=== PATIENT | female | born 1985 | race Caucasian/White ===

== ENCOUNTER 2017-02-21 13:36 | Emergency (ER) | payer OTHER ==
[~2017-02-21] VITALS: Ht 170.2 cm; Wt 68.0 kg
[2017-02-21] MEDS ORDERED: IBUPROFEN600 MG ORAL (14:28)
[2017-02-21 14:52] VITALS: BP 131/77
--- NOTE | 2017-02-21 15:17 | Diagnostic Imaging Report ---
Indication: PAIN Technique: 2 views of the left hip Comparison: Findings: No acute fractures. No dislocations. Joint spaces are preserved. Normal mineralization. Impression: No acute process
--- NOTE | 2017-02-21 21:28 | Emergency Room Report ---
History of Present Illness General Chief Complaint: Multiple Trauma/Fall Source: Patient Present Illness HPI The patient is a 31-year-old female presenting with left hip pain which began today after falling at work. The patient states that she slipped and fell onto the left hip. Pain is described as a 6/10 dull ache and does not radiate from the hip. Pain is worse with walking and touch. The patient denies prior injury to the hip. She denies numbness or tingling. She denies any other symptoms Allergies: Coded Allergies: No Known Allergies (Unverified , 02/21/17) Patient History Past Medical History: see triage record Pertinent Family History: none Last Menstrual Period: 02/03/17 Now: No Reviewed Nursing Documentation: PMH: Agreed, PSxH: Agreed Nursing Documentation-PMH Past Medical History: No Stated History Review of Systems All Other Systems: negative except mentioned in HPI Physical Exam Vital Signs Date Time Temp Pulse Resp B/P Pulse Ox O2 Delivery O2 Flow Rate FiO2 02/21/17 13:43 97.5 104 14 98/63 99 Room Air Sp02 EP Interpretation: reviewed, normal General Appearance: no apparent distress, alert, GCS 15, non-toxic Head: normocephalic, atraumatic Eyes: bilateral eye PERRL, bilateral eye normal inspection Musculoskeletal: digits/nails normal, normal range of motion, no calf tenderness, tender - Lateral L hip Neurologic: alert, oriented x3, responsive, motor strength/tone normal, sensory intact, speech normal, abnormal gait - antalgic Skin: normal color, no rash, warm/dry, well hydrated Lymphatic: no adenopathy Medical Decision Making PA Attestation Dr. Mazariegos is my supervising physician. Patient management was discussed with my supervising physician Diagnostic Impression: Primary Impression: Contusion of hip, left ER Course The patient is a 31-year-old female presenting with left hip pain Ddx considered include but not limited to sprain/strain, fracture, contusion PE: Vitals WNL. NAD. L hip: Skin intact. No erythema or edema. Sensation intact to light touch. Full AROM. No joint laxity. No obvious deformity.There is tenderness to palpation over the left lateral hip. No leg length discrepancy. Patient walks with antalgic gait X-ray series of the hip is unremarkable. Patient is given Tylenol for pain with good relief She'll be discharged home with a prescription for Motrin and will follow up with PMD. ER precautions are given Other X-Ray Diagnostic Results Other X-Ray Diagnostic Results : X-Ray Ordered: L Hip Date: Feb 21, 2017 Findings: no fractures, no dislocation, no soft tissue swelling Number of Views: 3 PA Scribe Text I am acting as scribe for my supervising physician. My supervising physician's interpretation of the L hip xrays are there are no fractures, dislocations or soft tissue swelling. Last Vital Signs Date Time Temp Pulse Resp B/P Pulse Ox O2 Delivery O2 Flow Rate FiO2 02/21/17 14:52 120 16 131/77 98 Room Air 02/21/17 14:52 97.5 Status: improved Disposition: HOME, SELF-CARE Condition: Improved Scripts Ibuprofen* (MOTRIN*) 600 Mg Tablet 600 MG ORAL Q8H Y for For Pain, #30 TAB 0 Refills Prov: ASHWIN CASE 02/21/17 Patient Instructions: Hip Pain Additional Instructions: I discussed my findings with the patient. All questions and concerns have been answered. Treatment and medication compliance have been addressed. I advised the patient that they need to follow up with PMD in 3-5 days. Return to ED if pain remains or worsens, numbness or tingling occurs, new rash is noticed, fever is noticed, or if needed for any reason. Patient verbalized understanding of discharge instructions. ASHWIN CASE Feb 21, 2017 21:28
== END 2017-02-21 14:57 | disposition home or self-care (01) ==
LOC: EMR 14:00
DX: S70.02XA Contusion of left hip, initial encounter (principal); W01.0XXA Fall on same level from slipping, tripping and stumbling without subsequent striking against object, initial encounter; Y92.511 Restaurant or cafe as the place of occurrence of the external cause; Y99.0 Civilian activity done for income or pay
CPT/HCPCS: 73502; 99283